=== PATIENT | male | born 1975 | race Caucasian/White ===

== ENCOUNTER 2017-05-16 19:45 | Emergency (ER) | payer BC ==
[2017-05-16 20:20] LABS: ABS Basophils 0 10^3/ul (0-0.2); ABS Eosinophils 0.1 10^3/ul (0-0.6); ABS Lymphocytes 1.7 10^3/ul (1.0-4.8); ABS Monocytes 0.4 10^3/ul (0-0.8); ABS Neutrophils 2.6 10^3/ul (1.5-7.7); ABS Nucleated RBC 0 10^3/ul; Eosinophil % 2.6 % (0-6); Hematocrit 42 % (42-52); Hemoglobin 14.5 g/dl (14.0-18.0); Mean Corpuscular HGB Conc 35 g/dl (31-36); Mean Corpuscular Hemoglobin 28 pg (27-31); Mean Corpuscular Volume 81 fL (80-94); Mean Platelet Volume 8 um3 (7.4-10.4); Nucleated Red Blood Cells % 0; Platelet Count 236 10^3/ul (150-450); Red Blood Count 5.13 10^6/ul (4.0-5.4); Red Cell Distribution Width 13 % (10.5-15); White Blood Count 4.9 10^3/ul (3.5-10.8)
--- NOTE | 2017-05-16 20:25 | RAD ---
INDICATION: Chest pain. COMPARISON: There are no prior studies available for comparison. TECHNIQUE: Dual-energy PA and lateral views of the chest were obtained. FINDINGS: The heart is within normal limits in size. Mediastinal and hilar contours appear within normal limits. The lungs are clear. No pleural effusion is present. IMPRESSION: NO EVIDENCE FOR ACTIVE CARDIOPULMONARY DISEASE.
[2017-05-16] MEDS ORDERED: Aspirin TAB* 325 MG PO ONE (20:29)
[2017-05-16] MEDS ORDERED: Morphine INJ* 4 MG/ML 1 ML SYRINGE (NEW SYRINGE VERSION) IV ONE (20:30)
[2017-05-16 20:38] LABS: EGFR Non-African American 67.7 (>60)
[2017-05-16 21:55] VITALS: BP 115/83
--- NOTE | 2017-05-17 14:38 | ED ---
Chante Majano Gabriel, scribed for Jonah Shrestha MD on 05/16/17 at 2030 . HPI Chest Pain - HPI Summary HPI Summary: This patient is a 42 year old M presenting to [facility] with a chief complaint of CP since 1330 this afternoon. Onset began while at rest. The patient rates the constant pain 6/10 in severity. Symptoms aggravated by taking deep breaths. Patient denies n/v, diaphoresis, dizziness, LE edema, and recent travel. - History of Current Complaint Chief Complaint: EDChestPainROMI Time Seen by Provider: 05/16/17 20:16 Hx Obtained From: Patient Onset/Duration: Still Present Time of Onset: 13:30 Timing: Constant Initial Severity: Moderate Current Severity: Moderate Pain Intensity: 6 Pain Scale Used: 0-10 Numeric Chest Pain Radiates To:: Arm Character: Sharp/Stabbing, Tightness Aggravating Factor(s): Deep Breaths - n/v, diaphoresis, dizziness, LE edema, and recent travel. - Risk Factors Pulmonary Embolism Risk Factors: Negative AMI/ACS Risk Factors: Family History - Allergy/Home Medications Allergies/Adverse Reactions: Allergies Allergy/AdvReac Type Severity Reaction Status Date / Time No Known Allergies Allergy Verified 05/16/17 19:56 PMH/Surg Hx/FS Hx/Imm Hx Endocrine/Hematology History: Denies: Hx Anticoagulant Therapy, Hx Blood Transfusions, Hx Diabetes, Hx Sickle Cell Disease Cardiovascular History: Denies: Hx Congenital Heart Disease, Hx Coronary Artery Disease, Hx Deep Vein Thrombosis, Hx Myocardial Infarction, Hx Pacemaker/ICD Respiratory History: Denies: Hx Chronic Obstructive Pulmonary Disease (COPD) History: Denies: Hx Benign Prostatic Hyperplasia, Hx Chronic Renal Failure Sensory History: Denies: Hx Contacts or Glasses, Hx Eye Injury, Hx Glaucoma Psychiatric History: Denies: Hx Panic Disorder Infectious Disease History: No Infectious Disease History: Denies: Traveled Outside the [place] in Last 30 Days - Family History Known Family History: Positive: Cardiac Disease - Social History Alcohol Use: Occasionally Hx Substance Use: No Substance Use Type: Reports: None Hx Tobacco Use: No Smoking Status (MU): Never Smoked Tobacco Review of Systems Negative: Skin Diaphoresis Positive: Chest Pain Negative: Vomiting, Nausea Negative: Edema Neurological: Negative - dizziness All Other Systems Reviewed And Are Negative: Yes Physical Exam - Summary Physical Exam Summary: Appearance: Well-appearing, no distress, Well-nourished Skin: Warm, color reflects adequate perfusion Head: Normal Head/Face inspection Eyes: Conjunctiva clear ENT: Normal inspection Neck: Supple, no nodes, no JVD. Respiratory: Lungs clear, Normal breath sounds, no respiratory distress Cardio: RRR, No murmur, pulses normal, brisk capillary refill Abdomen: soft, nontender, no guarding, no rebound Bowel sounds: present Musculoskeletal: Strength Intact/ ROM intact. No calf tenderness. No edema. Neuro: Alert, muscle tone normal, facial symmetry, speech normal, sensory/motor intact Psychological: Normal Triage Information Reviewed: Yes Vital Signs On Initial Exam: Initial Vitals Temp Pulse Resp BP Pulse Ox 98 F 68 18 130/75 99 05/16/17 19:54 05/16/17 19:54 05/16/17 19:54 05/16/17 19:54 05/16/17 19:54 Vital Signs Reviewed: Yes Diagnostics - Vital Signs Vital Signs Temp Pulse Resp BP Pulse Ox 05/16/17 19:54 98 F 68 18 130/75 99 - Laboratory Lab Results: Lab Results 05/16/17 Range/Units 20:05 WBC 4.9 (3.5-10.8) 10^3/ul RBC 5.13 (4.0-5.4) 10^6/ul Hgb 14.5 (14.0-18.0) g/dl Hct 42 (42-52) % MCV 81 (80-94) fL MCH 28 (27-31) pg MCHC 35 (31-36) g/dl RDW 13 (10.5-15) % Plt Count 236 (150-450) 10^3/ul MPV 8 (7.4-10.4) um3 Neut % (Auto) 53.4 (38-83) % Lymph % (Auto) 34.0 (25-47) % Atlantic % (Auto) 9.0 H (0-7) % Eos % (Auto) 2.6 (0-6) % Baso % (Auto) 1.0 (0-2) % Absolute Neuts (auto) 2.6 (1.5-7.7) 10^3/ul Absolute Lymphs (auto) 1.7 (1.0-4.8) 10^3/ul Absolute Monos (auto) 0.4 (0-0.8) 10^3/ul Absolute Eos (auto) 0.1 (0-0.6) 10^3/ul Absolute Basos (auto) 0 (0-0.2) 10^3/ul Absolute Nucleated RBC 0 10^3/ul Nucleated RBC % 0 Result Diagrams: 05/16/17 20:05 05/16/17 20:05 Lab Statement: Any lab studies that have been ordered have been reviewed, and results considered in the medical decision making process. - Radiology CXR Radiology Interpretation Completed By: Radiologist - NO EVIDENCE FOR ACTIVE CARDIOPULMONARY DISEASE. ED physician has reviewed this radiology report. - EKG 1953 Cardiac Rate: NL EKG Rhythm: Sinus Rhythm - at 64 BPM EKG Interpretation: normal interval, normal axis, no st/t changes Re-Evaluation - Re-Evaluation First Eval Change: Improved - Pt chest pain completed resolved. pt hemodynamically stable. Pt HEART score 1. pt low risk chest pain. Plan for pt to f/u with Cardiology and his PCP for further evaluation. Chest Pain Course/Dx - Course Assessment/Plan: Pt with low risk chest pain. Plan for outptient follow up with Cardiology. - Chest Pain Differential Diagnosis/HQI/PQRI: Acute OK, ACS, Angina, Aortic Aneurysm, CHF, Pulmonary Edema, Pulmonary Embolism - Diagnoses Provider Diagnoses: Atypical chest pain Discharge - Discharge Plan Condition: Improved Disposition: HOME Prescriptions: Ketorolac TAB * [Toradol TAB *] 10 mg PO Q6H 7 Days #10 tab Patient Education Materials: Chest Pain (ED) Referrals: Ramana Almendarez MD [Primary Care Provider] - Marcus Love DO [Medical Doctor] - 2 Days The documentation as recorded by the Chante mejia Gabriel accurately reflects the service I personally performed and the decisions made by , Jonah Shrestha MD.
== END 2017-05-16 21:54 | disposition home or self-care (01) ==
LOC: ED 19:45
DX: R07.89 Other chest pain (principal); R42 Dizziness and giddiness
CPT/HCPCS: 36415; 71046; 80053; 83605; 83880; 84484; 85025; 85379; 93005; 96374; 99284; J2270